=== PATIENT | female | born 1970 | race Hispanic/Latino ===

== ENCOUNTER 2025-04-13 13:08 | Outpatient (CLI) | payer OTHER, SELFPAY ==
--- NOTE | ~2025-04-13 | MM_ITS ---
EXAMINATION: MM diagnostic demetrius BI w sammy HISTORY: Palpable left breast abnormality for 2 months. Family history of breast cancer. TECHNIQUE: Additional 3-D tomosynthesis images of the breasts were performed and synthetic 2-D images were generated. CAD analysis was submitted and interpreted. COMPARISON: None BREAST PARENCHYMAL COMPOSITION: Not dense: There are scattered areas of fibroglandular density. FINDINGS: There are asymmetries in the upper outer quadrant of the right breast, middle third. No discrete mass or suspicious calcifications are identified. No mammographic evidence for malignancy in the left breast. IMPRESSION: 1. Focal right breast asymmetries without discrete mass upper outer quadrant, middle third. 2. Limited right breast ultrasound of the upper half of the right breast as well as targeted left breast ultrasound recommended for area of palpable concern. BI-RADS Category 0: Incomplete: Needs additional imaging evaluation. Reviewed, dictated and finalized at location B. IMPRESSION: 1. Focal right breast asymmetries without discrete mass upper outer quadrant, m iddle third. 2. Limited right breast ultrasound of the upper half of the right breast as wel l as targeted left breast ultrasound recommended for area of palpable concern. BI-RADS Category 0: Incomplete: Needs additional imaging evaluation.
== END 2025-04-13 13:09 | disposition home or self-care (01) ==
PROVIDERS: Visit Provider Physician Assistant
DX: R92.8 Other abnormal and inconclusive findings on diagnostic imaging of breast (principal); N63.22 Unspecified lump in the left breast, upper inner quadrant; N64.89 Other specified disorders of breast
CPT/HCPCS: 77062; 77066; G0279

== ENCOUNTER 2025-04-17 14:23 | Outpatient (CLI) | payer OTHER, SELFPAY ==
--- NOTE | ~2025-04-17 | US_ITS ---
US breast BI limited 04/17/2025 14:50 Indication: Palpable left breast abnormality. Right breast asymmetry seen by ultrasound. Procedure: High-resolution Limited bilateral breast ultrasound. Comparison: Mammogram dated 04/13/2025 Findings: Limited right breast ultrasound: At 10:00, 1 cm from the nipple there is a 7 mm cyst. At 12:00, 1 cm from the nipple there is a 4 mm cyst. Left breast: Normal heterogeneous echotexture without evidence for malignancy. Impression: 1: No sonographic evidence for malignancy in either breast. Routine yearly screening mammogram and regular clinical breast examination are recommended. BI-RADS CATEGORY 2 - BENIGN FINDINGS Reviewed, dictated and finalized at location B. Impression: 1: No sonographic evidence for malignancy in either breast. Routine yearly screening mammogram and regular clinical breast examination are recommended. BI-RADS CATEGORY 2 - BENIGN FINDINGS
== END 2025-04-17 14:24 | disposition home or self-care (01) ==
LOC: ANHFOHIMG 14:24
PROVIDERS: Visit Provider Physician Assistant
DX: R92.8 Other abnormal and inconclusive findings on diagnostic imaging of breast (principal)
CPT/HCPCS: 76642